=== PATIENT | female | born 1990 | race African-American/Black ===

== ENCOUNTER 2017-07-07 07:57 | Emergency (ER) | payer MEDICAID ==
[~2017-07-07] VITALS: Ht 167.6 cm; Wt 90.0 kg
[2017-07-07] MEDS ORDERED: TETANUS, DIPHTHERIA, PERTUSSIS VAC/PF 0.5ML (>7YR OLD) IM ONE (08:15)
[2017-07-07] MEDS ORDERED: SODIUM CHLORIDE 0.9% 500 ML IV ONE (08:45)
[2017-07-07 09:39] LABS: HCG SCREEN POSITIVE
[2017-07-07] MEDS ORDERED: LIDOCAINE HCL/PF 1% 10 MG/ML 5ML VIAL ONE (09:40)
[2017-07-07] MEDS ORDERED: BACITRACIN ZINC OINT UDPKT TOP ONE (10:00)
[2017-07-07 11:59] VITALS: BP 118/79
== END 2017-07-07 12:03 | disposition home or self-care (01) ==
LOC: ER 08:23
DX: T25.222A Burn of second degree of left foot, initial encounter (principal); X12.XXXA Contact with other hot fluids, initial encounter; Y93.89 Activity, other specified; Y92.89 Other specified places as the place of occurrence of the external cause; Y99.8 Other external cause status
CPT/HCPCS: 16020; 84703; 90471; 90715; 96360; 99284; J3490; J7040; X7700; Z7610

== ENCOUNTER 2017-08-17 21:07 | Inpatient (IN) | payer MEDICAID ==
[~2017-08-17] VITALS: Ht 172.7 cm; Wt 90.7 kg
[2017-08-17] MEDS ORDERED: DEXT 5%/LR + PITOCIN 20UNITS/L 1,000 ML IV SCH ×2 (21:11→21:52)
[2017-08-17] MEDS ORDERED: METHYLERGONOVINE MALEATE 0.2 MG/ML IM PRN (21:15)
[2017-08-17] MEDS ORDERED: CARBOPROST TROMETHAMINE 250 MCG/ML AMPUL IM PRN (21:15)
[2017-08-17] MEDS ORDERED: DIPHENHYDRAMINE 25MG CAPSULE PO PRN (22:00)
[2017-08-17] MEDS ORDERED: OXYCODONE HCL/ACETAMINOPHEN 5/325MG TABLET PO PRN ×2 (22:00)
[2017-08-17] MEDS ORDERED: RHO(D) IMMUNE GLOBULIN 300 MCG/SYR IM PRN (22:00)
[2017-08-17] MEDS ORDERED: BISACODYL 10MG SUPP PR PRN (22:00)
[2017-08-17] MEDS ORDERED: LANOLIN OINT 0.25 GM TUBE TOP PRN (22:00)
[2017-08-17] MEDS ORDERED: HEMORRHOIDAL SUPP PR PRN (22:00)
[2017-08-17 22:45] LABS: BASOPHILS % 0.2 % (0.0-2.0); EOSINOPHILS % 0.4 % (0.0-5.0); HEMATOCRIT. 34.6 % (36.0-48.0); HEMOGLOBIN. 11.3 g/dL (12.0-16.0); LYMPHOCYTES % 8.7 % (20.0-50.0); MEAN CORPUSCULAR HEMOGLOBIN 25.8 pg (28.0-32.0); MEAN CORPUSCULAR VOLUME 79.1 fL (81.0-99.0); MEAN PLATELET VOLUME 8.1 fl (7.4-10.4); MONOCYTES % 4.5 % (2.0-8.0); NEUTROPHILS % 86.2 % (40.0-76.0); PLATELET 233 x1000/uL (130-400); RED BLOOD CELL COUNT 4.38 mill/uL (4.2-5.4); RED CELL DISTRIBUTION WIDTH 17.8 % (11.6-14.6)
[2017-08-17 22:53] LABS: INR 0.9; PARTIAL THROMBOPLASTIN TIME 31.5 sec (23.4-31.0); PROTHROMBIN TIME 9.6 sec (9.4-11.6)
[2017-08-17 23:26] LABS: HEPATITIS B SURFACE ANTIGEN NEGATIVE; RUBELLA IGG 40.8 IU/mL (4.99-10)
[2017-08-18 00:30] VITALS: BP 111/72
[2017-08-18 00:41] LABS: KETONES URINE TRACE (NEGATIVE); LEUKOCYTE ESTERASE URINE 2+ (NEGATIVE); NITRITE URINE NEGATIVE (NEGATIVE); OCCULT BLOOD URINE 3+ (NEGATIVE); PH URINE 6.5 (4.5-8.0); PROTEIN URINE 2+ (NEGATIVE); SPECIFIC GRAVITY URINE 1.021 (1.005-1.030); UROBILINOGEN URINE 0.2 E.U./dL (0.2-1.0)
[2017-08-18 00:44] LABS: CLARITY URINE CLOUDY (CLEAR); COLOR URINE BLOODY (YELLOW)
[2017-08-18 00:59] LABS: *BARBITURATES SCREEN URINE NEGATIVE (NEGATIVE); *BENZODIAZEPINES SCREEN URINE NEGATIVE (NEGATIVE); *COCAINE SCREEN URINE NEGATIVE (NEGATIVE); METHADONE URINE SCREEN NEGATIVE (NEGATIVE); OPIATES URINE SCREEN NEGATIVE (NEGATIVE)
[2017-08-18 01:00] LABS: CANNABINOID URINE SCREEN NEGATIVE (NEGATIVE); PHENCYCLIDINE URINE SCREEN NEGATIVE (NEGATIVE)
[2017-08-18 01:04] LABS: *AMPHETAMINES SCREEN URINE PRESUMTIVE POSITIVE (NEGATIVE)
[2017-08-18 06:00] VITALS: BP 109/70
[2017-08-18 07:42] VITALS: BP 110/66
[2017-08-18] MEDS: PRENATAL VIT/FE FUMARATE/FA TABLET PO SCH (08:11)
[2017-08-18] MEDS: SIMETHICONE 80MG TABLET CHEW PO SCH ×4 (08:11→20:54)
[2017-08-18] MEDS: IBUPROFEN 400MG TABLET PO PRN ×2 (08:12→17:46)
[2017-08-18 10:46] LABS: BASOPHILS % 0.2 % (0.0-2.0); EOSINOPHILS % 0.5 % (0.0-5.0); HEMATOCRIT. 31.5 % (36.0-48.0); HEMOGLOBIN. 10.2 g/dL (12.0-16.0); LYMPHOCYTES % 9.8 % (20.0-50.0); MEAN CORPUSCULAR HEMOGLOBIN 25.4 pg (28.0-32.0); MEAN CORPUSCULAR VOLUME 78.6 fL (81.0-99.0); MEAN PLATELET VOLUME 7.8 fl (7.4-10.4); MONOCYTES % 7.8 % (2.0-8.0); NEUTROPHILS % 81.7 % (40.0-76.0); PLATELET 242 x1000/uL (130-400); RED CELL DISTRIBUTION WIDTH 17.4 % (11.6-14.6)
[2017-08-18] MEDS: FERROUS SULFATE 325MG TABLET PO SCH ×2 (13:04→17:46)
[2017-08-18 16:06] VITALS: BP 110/65
[2017-08-18] MEDS ORDERED: DOCUSATE SODIUM 100MG CAPSULE PO SCH (21:00)
[2017-08-18 22:00] VITALS: BP 109/68
[2017-08-19 06:00] VITALS: BP 108/64
[2017-08-19] MEDS: PRENATAL VIT/FE FUMARATE/FA TABLET PO SCH (09:06)
[2017-08-19] MEDS: FERROUS SULFATE 325MG TABLET PO SCH (09:07)
[2017-08-19] MEDS: SIMETHICONE 80MG TABLET CHEW PO SCH (09:07)
[2017-08-23 13:11] LABS: AMPHETAMINE CONF URINE Positive (.)
== END 2017-08-19 13:00 | disposition home or self-care (01) | DRG 560 ==
LOC: L&D 21:07 → OBSVTOIN 21:07 → 7EST PP/OB 08-18 00:02
PROVIDERS: ADMIT Specialist; ATTEND Specialist
PROC: 10E0XZZ Delivery of Products of Conception, External Approach (ICD-10-PCS; principal; 2017-08-17 21:02)
DX: O99.02 Anemia complicating childbirth (principal); O99.324 Drug use complicating childbirth; O99.334 Smoking (tobacco) complicating childbirth; F10.10 Alcohol abuse, uncomplicated; F15.10 Other stimulant abuse, uncomplicated; O99.314 Alcohol use complicating childbirth; F17.200 Nicotine dependence, unspecified, uncomplicated; D64.9 Anemia, unspecified; Y90.9 Presence of alcohol in blood, level not specified; O09.33 Supervision of pregnancy with insufficient antenatal care, third trimester; Z3A.40 40 weeks gestation of pregnancy; Z37.0 Single live birth
CPT/HCPCS: 36415; 80305; 80307; 81003; 85025; 85610; 85730; 86592; 86703; 86762; 86850; 86900; 87340; G0378; J2590; J7120

== ENCOUNTER 2019-09-07 18:58 | Inpatient (IN) | payer MEDICAID ==
[~2019-09-07] VITALS: Ht 172.7 cm; Wt 117.9 kg
[2019-09-07] MEDS ORDERED: DEXT 5%/LACTATED RINGERS 1,000 ML IV SCH (19:03)
[2019-09-07] MEDS ORDERED: DEXT 5%/LR + PITOCIN 20UNITS/L 1,000 ML IV SCH ×2 (19:03→22:04)
[2019-09-07] MEDS ORDERED: NALOXONE HCL 0.4 MG/ML 1ML VIAL IM PRN (19:15)
[2019-09-07] MEDS ORDERED: LIDOCAINE HCL 1% 20ML VIAL (Pyxis) INJ INFIL SCH (19:15)
[2019-09-07] MEDS ORDERED: RHO(D) IMMUNE GLOBULIN 300 MCG/SYR IM NR (19:15)
[2019-09-07] MEDS ORDERED: BUTORPHANOL TARTRATE 2 MG/ML VIAL IV PRN ×2 (19:15→23:30)
[2019-09-07] MEDS ORDERED: PENICILLIN G POTASSIUM 5 MMU in DEXT 5% WATER 100 ML IV NR (19:30)
[2019-09-07 19:39] LABS: CLARITY URINE TURBID (CLEAR); COLOR URINE YELLOW (YELLOW); KETONES URINE NEGATIVE (NEGATIVE); LEUKOCYTE ESTERASE URINE 3+ (NEGATIVE); NITRITE URINE NEGATIVE (NEGATIVE); OCCULT BLOOD URINE 2+ (NEGATIVE); PH URINE 7.5 (4.5-8.0); PROTEIN URINE 1+ (NEGATIVE); SPECIFIC GRAVITY URINE 1.013 (1.005-1.030)
[2019-09-07 19:49] LABS: *BARBITURATES SCREEN URINE NEGATIVE (NEGATIVE); BASOPHILS % 0.3 % (0.0-2.0); EOSINOPHILS % 0.8 % (0.0-5.0); HEMATOCRIT. 33.1 % (36.0-48.0); HEMOGLOBIN. 10.7 g/dL (12.0-16.0); LYMPHOCYTES % 23.2 % (20.0-50.0); MEAN CORPUSCULAR HEMOGLOBIN 23.6 pg (28.0-32.0); MEAN CORPUSCULAR VOLUME 73.2 fL (81.0-99.0); MEAN PLATELET VOLUME 8.2 fl (7.4-10.4); MONOCYTES % 9.2 % (2.0-8.0); NEUTROPHILS % 66.5 % (40.0-76.0); PLATELET 238 x1000/uL (130-400); RED BLOOD CELL COUNT 4.53 mill/uL (4.2-5.4); RED CELL DISTRIBUTION WIDTH 18.4 % (11.6-14.6)
[2019-09-07 19:50] LABS: *BENZODIAZEPINES SCREEN URINE NEGATIVE (NEGATIVE); *COCAINE SCREEN URINE NEGATIVE (NEGATIVE); CANNABINOID URINE SCREEN NEGATIVE (NEGATIVE); METHADONE URINE SCREEN NEGATIVE (NEGATIVE); OPIATES URINE SCREEN NEGATIVE (NEGATIVE); PHENCYCLIDINE URINE SCREEN NEGATIVE (NEGATIVE)
[2019-09-07 19:51] LABS: INR 0.9; PARTIAL THROMBOPLASTIN TIME 27.4 sec (23.4-31.0); PROTHROMBIN TIME 9.3 sec (9.6-11.0)
[2019-09-07] MEDS ORDERED: MAGNESIUM 20 G PREMIX (L & D) 500 ML IV ONE (20:08)
[2019-09-07] MEDS ORDERED: MAGNESIUM 4 G PREMIX 100 ML IV NR (20:10)
[2019-09-07 20:15] LABS: *AMPHETAMINES SCREEN URINE PRESUMTIVE POSITIVE (NEGATIVE)
[2019-09-07] MEDS ORDERED: MAGNESIUM 20 G PREMIX (L & D) 500 ML IV SCH ×3 (20:15→22:37)
[2019-09-07 20:18] LABS: HEPATITIS B SURFACE ANTIGEN NEGATIVE
[2019-09-07] MEDS ORDERED: FENTANYL CITRATE/PF 50MCG/ML 2ML VIAL ONE (20:37)
[2019-09-07] MEDS ORDERED: MORPHINE SULFATE/PF 1MG/ML 10ML AMP ONE (20:37)
[2019-09-07] MEDS ORDERED: OXYTOCIN 10 UNITS/ML 1ML ONE ×2 (20:39→21:56)
[2019-09-07] MEDS ORDERED: ONDANSETRON HCL 4MG/2ML INJ ONE (20:39)
[2019-09-07] MEDS ORDERED: CEFAZOLIN SODIUM 1000MG/VIAL ONE (20:39)
[2019-09-07] MEDS ORDERED: SODIUM CHLORIDE 0.9% 10ML VIAL ONE (20:40)
[2019-09-07] MEDS ORDERED: CITRIC ACID/SODIUM CITRATE SOLN 30ML UDC PO NR (20:45)
[2019-09-07] MEDS ORDERED: MIDAZOLAM HCL 2 MG/2 ML VIAL ONE (21:03)
[2019-09-07] MEDS ORDERED: PHENYLEPHRINE HCL 10 MG/ML 1ML (IV VIAL) IV ONE (21:35)
[2019-09-07] MEDS ORDERED: DIPHENHYDRAMINE 50MG/ML VIAL ONE (21:40)
[2019-09-07] MEDS ORDERED: KETOROLAC 60MG/2ML VIAL IM ONE (21:40)
[2019-09-07] MEDS ORDERED: BISACODYL 10MG SUPP PR PRN (22:15)
[2019-09-07] MEDS ORDERED: ACETAMINOPHEN 500MG TABLET PO NR (22:15)
[2019-09-07] MEDS ORDERED: HEMORRHOIDAL SUPP PR PRN (22:15)
[2019-09-07] MEDS ORDERED: ONDANSETRON HCL 4MG/2ML INJ IV PRN (22:15)
[2019-09-07] MEDS ORDERED: RHO(D) IMMUNE GLOBULIN 300 MCG/SYR IM PRN (22:15)
[2019-09-07] MEDS ORDERED: LANOLIN OINT 7GM TUBE TOP PRN (22:15)
[2019-09-07] MEDS ORDERED: DIPHENHYDRAMINE 25MG CAPSULE PO PRN (22:15)
[2019-09-07] MEDS ORDERED: HYDROCODONE/ACETAMINOPHEN 5/325MG TABLET PO PRN (22:15)
[2019-09-07] MEDS ORDERED: NALOXONE HCL 0.4 MG/ML 1ML VIAL IV PRN (23:30)
[2019-09-07] MEDS ORDERED: DIPHENHYDRAMINE 50MG/ML VIAL IV PRN (23:30)
[2019-09-08] VITALS (8 sets, daily range): BP systolic 100–133; BP diastolic 54–78
[2019-09-08] MEDS ORDERED: PENICILLIN G POTASSIUM 2.5 MMU in DEXTROSE 5% WATER 50 ML IV SCH ×2
[2019-09-08] MEDS: KETOROLAC 30MG/ML VIAL IV SCH ×2 (04:18→12:25)
[2019-09-08] MEDS: CEFAZOLIN 500 MG in DEXTROSE 5% WATER 50 ML IV SCH ×2 (04:18→12:25)
[2019-09-08 06:54] LABS: BASOPHILS % 0.3 % (0.0-2.0); EOSINOPHILS % 0.3 % (0.0-5.0); HEMATOCRIT. 26.2 % (36.0-48.0); HEMOGLOBIN. 8.3 g/dL (12.0-16.0); LYMPHOCYTES % 12.2 % (20.0-50.0); MEAN CORPUSCULAR HEMOGLOBIN 23.4 pg (28.0-32.0); MEAN CORPUSCULAR VOLUME 73.5 fL (81.0-99.0); MONOCYTES % 6.9 % (2.0-8.0); NEUTROPHILS % 80.3 % (40.0-76.0); PLATELET 226 x1000/uL (130-400); RED BLOOD CELL COUNT 3.57 mill/uL (4.2-5.4); RED CELL DISTRIBUTION WIDTH 18.6 % (11.6-14.6)
[2019-09-08] MEDS: MAGNESIUM/ALUMINUM HYDROXIDE/SIMETHICONE 30ML UDC PO SCH ×4 (08:47→21:13)
[2019-09-08] MEDS: FERROUS SULFATE 325MG TABLET PO SCH ×3 (08:47→18:08)
[2019-09-08] MEDS: IBUPROFEN 400MG TABLET PO PRN (18:26)
[2019-09-08] MEDS: DOCUSATE SODIUM 100MG CAPSULE PO SCH (21:12)
[2019-09-09] VITALS (7 sets, daily range): BP systolic 105–161; BP diastolic 65–99
[2019-09-09] MEDS: ACETAMINOPHEN WITH CODEINE 300/30MG TABLET PO PRN ×4 (00:14→23:19)
[2019-09-09] MEDS: IBUPROFEN 400MG TABLET PO PRN ×2 (05:26→13:14)
[2019-09-09] MEDS: MAGNESIUM/ALUMINUM HYDROXIDE/SIMETHICONE 30ML UDC PO SCH ×4 (08:30→21:20)
[2019-09-09] MEDS: FERROUS SULFATE 325MG TABLET PO SCH ×3 (08:31→17:54)
[2019-09-09] MEDS: LABETALOL HCL 100MG TABLET PO SCH ×3 (08:33→17:54)
[2019-09-09] MEDS: DOCUSATE SODIUM 100MG CAPSULE PO SCH (21:20)
[2019-09-10] VITALS: BP 142/79
[2019-09-10 04:00] VITALS: BP 151/85
[2019-09-10] MEDS ORDERED: IBUP-2028 PO (05:48)
[2019-09-10] MEDS: LABETALOL HCL 100MG TABLET PO SCH ×2 (05:52→13:26)
[2019-09-10] MEDS ORDERED: LABE100T5 PO (06:11)
[2019-09-10 09:32] VITALS: BP 147/93
[2019-09-10] MEDS: DOCUSATE SODIUM 100MG CAPSULE PO SCH (13:26)
[2019-09-10] MEDS: ACETAMINOPHEN WITH CODEINE 300/30MG TABLET PO PRN (13:27)
[2019-09-10] MEDS ORDERED: ACETAMINOPHEN WITH CODEINE 300/30MG TABLET ONE (13:28)
[2019-09-11 17:09] LABS: AMPHETAMINE CONF URINE Positive (.)
== END 2019-09-10 15:00 | disposition home or self-care (01) | DRG 540 ==
LOC: 8 EST LDRP 18:58 → 8EST 09-08 01:30
PROVIDERS: ADMIT Obstetrics & Gynecology; ATTEND Obstetrics & Gynecology
PROC: 10D00Z1 Extraction of Products of Conception, Low, Open Approach (ICD-10-PCS; principal; 2019-09-07)
DX: O99.02 Anemia complicating childbirth (principal); O99.324 Drug use complicating childbirth; D64.9 Anemia, unspecified; F15.10 Other stimulant abuse, uncomplicated; Z37.0 Single live birth; O32.1XX0 Maternal care for breech presentation, not applicable or unspecified; O13.4 Gestational [pregnancy-induced] hypertension without significant proteinuria, complicating childbirth; Z3A.34 34 weeks gestation of pregnancy
CPT/HCPCS: 36415; 76805; 76810; 80305; 80307; 81003; 83735; 84550; 85025; 85384; 86592; 86703; 86762; 86850; 86900; 87340; 88307; 99281; G0378; J0690; J1200; J1885; J2250; J2274; J2370; J2405; J2540; J3010; J3475; J7060

== ENCOUNTER 2020-01-29 19:43 | Emergency (ER) | payer MEDICAID ==
[~2020-01-29] VITALS: Ht 177.8 cm; Wt 63.0 kg
[~2020-01-29 19:43] MED LIST: IBUP-2028 PO; LABE100T5 PO
[2020-01-29] MEDS ORDERED: SODIUM CHLORIDE 0.9% 500 ML IV ONE (20:30)
[2020-01-29 20:57] LABS: HEMATOCRIT. 36.1 % (36.0-48.0); HEMOGLOBIN. 11.5 g/dL (12.0-16.0); MEAN CORPUSCULAR HEMOGLOBIN 24.8 pg (28.0-32.0); MEAN CORPUSCULAR VOLUME 77.5 fL (81.0-99.0); MEAN PLATELET VOLUME 7.4 fl (7.4-10.4); PLATELET 311 x1000/uL (130-400); RED BLOOD CELL COUNT 4.66 mill/uL (4.2-5.4); RED CELL DISTRIBUTION WIDTH 21.6 % (11.6-14.6)
[2020-01-29 21:02] LABS: CHLORIDE 105 mEq/L (98-107)
[2020-01-29 21:05] LABS: INR 1.1; PROTHROMBIN TIME 11.4 sec (9.6-11.0)
[2020-01-29 21:10] LABS: HCG SCREEN NEGATIVE
[2020-01-29 21:38] LABS: PLATELET ESTIMATE NORMAL
[2020-01-29] MEDS ORDERED: KETOROLAC 30MG/ML VIAL IV ONE (22:45)
[2020-01-29 22:52] LABS: CLARITY URINE CLOUDY (CLEAR); COLOR URINE YELLOW (YELLOW); KETONES URINE NEGATIVE (NEGATIVE); LEUKOCYTE ESTERASE URINE 1+ (NEGATIVE); NITRITE URINE NEGATIVE (NEGATIVE); OCCULT BLOOD URINE 3+ (NEGATIVE); PROTEIN URINE 2+ (NEGATIVE); SPECIFIC GRAVITY URINE 1.018 (1.005-1.030)
[2020-01-30 01:39] VITALS: BP 115/72
== END 2020-01-30 01:42 | disposition home or self-care (01) ==
LOC: ER 19:43
DX: S39.011A Strain of muscle, fascia and tendon of abdomen, initial encounter (principal); N39.0 Urinary tract infection, site not specified; I10 Essential (primary) hypertension; J45.909 Unspecified asthma, uncomplicated; X50.0XXA Overexertion from strenuous movement or load, initial encounter; X50.9XXA Other and unspecified overexertion or strenuous movements or postures, initial encounter; Y93.89 Activity, other specified; Y92.89 Other specified places as the place of occurrence of the external cause; Y99.8 Other external cause status
CPT/HCPCS: 36415; 74021; 76830; 76856; 80053; 81003; 83690; 84703; 85025; 85610; 93005; 96361; 96374; 99285; J1885; J7040